=== PATIENT | male | born 1960 | race Caucasian/White ===

== ENCOUNTER 2025-04-22 09:02 | Outpatient (CLI) | payer OTHER ==
[2025-04-22 10:49] LABS: Estimated GFR - POC 68.0
== END 2025-04-22 09:03 | disposition home or self-care (01) ==
LOC: CSHMRI 09:02
PROVIDERS: ATTEND Internal Medicine Gastroenterology
DX: K86.1 Other chronic pancreatitis (principal); K86.81 Exocrine pancreatic insufficiency; R10.13 Epigastric pain; Z90.49 Acquired absence of other specified parts of digestive tract; K83.8 Other specified diseases of biliary tract
CPT/HCPCS: 36415; 74183; 76376; 82565; S8037